=== PATIENT | male | born 1965 | race Caucasian/White ===

== ENCOUNTER → 2017-09-03 | Day surgery (SDC) | payer OTHER ==
[~2017-09-03] MED LIST: ALPRAZolam 0.5 MG TAB PO STA; HYDROcodone/APAP 5-325MG 1 EACH TAB PO PRN; HYDROmorphone 0.5 MG/0.5 ML SYRINGE IVP ONE
[2017-09-03 09:38] VITALS: TEMP 98.3
[2017-09-03 10:00] LABS: INR 1.1 (<1.2); Prothrombin Time 10.6 sec (9.0-12.0)
[2017-09-03 10:10] LABS: Mean Platelet Volume 9.9
[2017-09-03 10:26] LABS: Platelet Count 99 k/uL (150-450)
[2017-09-03 11:10] VITALS: RESP 16
[2017-09-03 13:03] VITALS: PULSE 58
[2017-09-03 14:51] VITALS: BP 110/59
--- NOTE | 2017-09-03 14:59 | US ---
EXAMINATION TYPE: US biopsy liver DATE OF EXAM: 09/03/2017 HISTORY: Hepatosplenomegaly PROCEDURE: Maximal barrier technique was utilized. After informed consent, the skin overlying a suit able path to the liver was localized using ultrasound, the skin was prepped and draped. Ultrasound w as utilized with sterile technique. Lidocaine was used for local anesthesia. A skin sam made with a scalpel. Under direct ultrasound guidance, an 18-gauge needle was advanced into the left lobe of th e liver and core biopsy obtained. Hemostasis was achieved. There was no immediate complication and patient remained in stable condition. Specimen submitted in formalin to Pathology. IMPRESSION: STATUS POST ULTRASOUND GUIDED CORE BIOPSY OF THE LEFT LOBE OF THE LIVER, PATHOLOGY JADA Boss. PERFORMED BY THE UNDERSIGNED.
== END ==
LOC: RADPROMAIN 09:10
DX: K75.81 Nonalcoholic steatohepatitis (NASH) (principal); K74.0 Hepatic fibrosis
CPT/HCPCS: 85049; 85610; 88313; 88307; 96374; 36415; 47000; 76942; J1170

== ENCOUNTER → 2017-10-01 | Outpatient (CLI) | payer OTHER ==
--- NOTE | 2017-10-01 10:31 | US ---
EXAMINATION TYPE: US abdomen complete DATE OF EXAM: 10/01/2017 COMPARISON: 06/26/2017 CLINICAL HISTORY: R10.11 Rt Upper Quadrant Pain. Burning sensation in lower right side, patient clarke ed his eating habits 2 months ago, lost 25lbs, unsure if burning and increase in gas in related to di etary changes. H/o fatty liver and gb polyp EXAM MEASUREMENTS: Liver Length: 19.2 cm Gallbladder Wall: 0.3 cm CBD: 0.4 cm Spleen: 17.5 cm Right Kidney: 12.3 x 5.5 x 5.9 cm Left Kidney: 11.3 x 4.6 x 5.4 cm Pancreas: unable to see due to bowel gas Liver: enlarged and difficult to penetrate but no gross mass noted . Hyperechogenicity with poor vis ualization of the portal triads most commonly relates to hepatic steatosis and limits evaluation for underlying hepatic masses. Gallbladder: possible 2 small polyps versus non shadowing stones, rolled pt LLD and they appeared no nmobile, 0.4cm and 0.2cm in size Evidence for sonographic Richey's sign: no CBD: wnl Spleen: enlarged, decreased by 2cm from previous U/S Right Kidney: wnl Left Kidney: wnl Upper IVC: wnl Abd Aorta: bowel gas limits bifurcation views IMPRESSION: 1. Redemonstration of hyperechoic hepatic echotexture most commonly related to hepatic steatosis. Thi s appears mild in degree. 2. 4 mm and 2 mm nonmobile probable gallbladder polyps versus nonshadowing stones (less likely). 3. Splenomegaly, although decreased in size from the prior exam of 06/26/2017.
== END | disposition home or self-care (01) ==
LOC: RADUSWWP 09:21
PROVIDERS: ATTEND Family Medicine
DX: K76.0 Fatty (change of) liver, not elsewhere classified (principal); R16.1 Splenomegaly, not elsewhere classified; R10.11 Right upper quadrant pain
CPT/HCPCS: 76700

== ENCOUNTER → 2018-09-29 | Outpatient (CLI) | payer OTHER | LOC: LABWHC1 16:14 | PROVIDERS: ATTEND Psychiatry & Neurology Pain Medicine | DX: Z01.818 Encounter for other preprocedural examination (principal) | CPT/HCPCS: 36415; 93005 ==

== ENCOUNTER → 2019-10-25 | Outpatient (CLI) | payer OTHER ==
--- NOTE | 2019-10-25 09:48 | US ---
EXAMINATION TYPE: US abdomen complete DATE OF EXAM: 10/25/2019 COMPARISON: 10/05/2017 CLINICAL HISTORY: R10.9 ABD PAIN. abn WBC, known enlarged liver, tender in LUQ EXAM MEASUREMENTS: Liver Length: 18.2 cm Gallbladder Wall: 0.2 cm CBD: 0.5 cm Spleen: 17.5 cm Right Kidney: 11.2 x 5.7 x 5.2 cm Left Kidney: 12.4 x 5.5 x 5.5 cm *large habitus and bowel gas Pancreas: not seen Liver: Coarsened echotexture. Suboptimal visualization of the portal triads. This limits evaluation for hepatic masses. No focal hepatic mass is seen. Gallbladder: wnl Evidence for sonographic Richey's sign: no CBD: wnl Spleen: enlarged, same size as 2018 exam Right Kidney: wnl Left Kidney: wnl Upper IVC: wnl Abd Aorta: not seen The intrahepatic portion of the IVC and proximal abdominal aorta are within normal limits. There is no evidence of cholelithiasis. Common bile duct is unremarkable. The visualized portions of the mckeon creas are homogenous. The spleen is enlarged. Kidneys are symmetric and free of hydronephrosis. No renal lesions are seen. IMPRESSION: 1. Coarsened hepatic echotexture as seen on the prior. Again this most commonly relates to hepatic st eatosis although other hepatocellular diseases are possible. 2. Splenomegaly as seen on the prior. 3. The previously seen 4 into millimeter probable gallbladder polyps are not redemonstrated on today' s examination. These could have related to tumefactive gallbladder sludge or may simply be obscured o n today's exam.
== END | disposition home or self-care (01) ==
LOC: RADUSWWP 09:02
PROVIDERS: ATTEND Family Medicine
DX: K76.89 Other specified diseases of liver (principal); R16.1 Splenomegaly, not elsewhere classified; R10.9 Unspecified abdominal pain
CPT/HCPCS: 76700

== ENCOUNTER → 2021-04-10 | Outpatient (CLI) | payer OTHER ==
--- NOTE | 2021-04-10 08:59 | US ---
EXAMINATION TYPE: US abdomen complete DATE OF EXAM: 04/10/2021 COMPARISON: CT abdomen 2010. Most recent ultrasound October 25, 2019 CLINICAL HISTORY: R16.1 Splenomegaly. hx splenomegaly EXAM MEASUREMENTS: Liver Length: 22.0 cm Gallbladder Wall: 0.1 cm CBD: 0.3 cm Spleen: 20.0 cm Right Kidney: 12.3 x 5.6 x 5.3 cm Left Kidney: 12.4 x 5.4 x 5.6 cm Pancreas: Obscured by bowel gas Liver: Increased attenuation, decreased visualization of vessels suggestive of fatty infiltrate. Ap pears coarse and enlarged in size. Echogenic in appearance. Gallbladder: Echogenic lesion adjacent to wall, nonvascular - 3.9 mm. Possible tiny polyp. No shadow ing mobile stones. Evidence for sonographic Richey's sign: neg CBD: wnl Spleen: Enlarged in size Right Kidney: No hydronephrosis or masses seen Left Kidney: No hydronephrosis or masses seen Upper IVC: Suboptimal visualization Abd Aorta: Mid and distal portion obscured by overlying bowel gas. Limited visualization of proximal . The visualized liver is redemonstrated heterogeneously hyperechoic. Evaluation for focal masses subop timal due to the heterogeneity. No surrounding ascites. The intrahepatic portion of the IVC and visua lized abdominal aorta are within normal limits. There is no evidence of shadowing mobile cholelithia sis. Common bile duct is unremarkable. The visualized portions of the pancreas are homogenous. The spleen is enlarged at 20.0 cm current study on long axis measured slightly larger than than prior ul trasounds. Kidneys are symmetric and free of hydronephrosis. No renal lesions are seen. IMPRESSION: Persistent and perhaps slightly more prominent splenomegaly. No new ascites. Diffuse fatt y infiltration of liver redemonstrated.
[2021-04-10 09:26] LABS: Basophils % (A) 1 %; Eosinophils # (A) 0.1 k/uL (0-0.7); Eosinophils % (A) 2 %; HGB 13.3 gm/dL (13.0-17.5); Lymphocytes # (A) 1.4 k/uL (1.0-4.8); Lymphocytes % (A) 49 %; MCH 30.4 pg (25.0-35.0); MCHC 34.2 g/dL (31.0-37.0); MCV 88.7 fL (80.0-100.0); Mean Platelet Volume 10.1; Monocytes # (A) 0.2 k/uL (0-1.0); Monocytes % (A) 6 %; Neutrophils # (A) 1.2 k/uL (1.3-7.7); Neutrophils % (A) 40 %; RBC 4.39 m/uL (4.30-5.90); WBC 2.9 k/uL (3.8-10.6)
[2021-04-10 09:45] LABS: ALT 33 U/L (4-49); AST 54 U/L (17-59); African American GFR (CKD) >90 (>60 ml/min/1.73 sqM); Albumin 4.5 g/dL (3.5-5.0); Alkaline Phosphatase 52 U/L (38-126); Amylase 48 U/L (30-110); Anion Gap 10 mmol/L; Blood Urea Nitrogen 10 mg/dL (9-20); Calcium 9.3 mg/dL (8.4-10.2); Carbon Dioxide 25 mmol/L (22-30); Chloride 104 mmol/L (98-107); Glucose 128 mg/dL (74-99); Lipase 368 U/L (23-300); Non-African American GFR(CKD) >90 (>60 ml/min/1.73 sqM); Potassium 4.2 mmol/L (3.5-5.1); Sodium 139 mmol/L (137-145); Total Bilirubin 0.3 mg/dL (0.2-1.3)
[2021-04-10 10:01] LABS: T4, Free (Free Thyroxine) 0.81 ng/dL (0.78-2.19)
[2021-04-10 11:42] LABS: Platelet Count 91 k/uL (150-450)
[2021-04-10 16:18] LABS: Chol/HDL Ratio 4.32; Cholesterol 121 mg/dL (0-200); LDL Cholesterol,Calculated 45.2 mg/dL (0.0-131.0)
== END | disposition home or self-care (01) ==
LOC: RADUSWWP 07:50
PROVIDERS: ATTEND Family Medicine
DX: K76.0 Fatty (change of) liver, not elsewhere classified (principal)
CPT/HCPCS: 84439; 80061; 80053; 82150; 83690; 84443; 85025; 82306; 76700; G0103

== ENCOUNTER → 2021-06-20 | Outpatient (CLI) | payer OTHER | END | disposition home or self-care (01) | LOC: LABWHC1 09:20 | PROVIDERS: ATTEND Psychiatry & Neurology Neurology | DX: Z01.818 Encounter for other preprocedural examination (principal); I49.9 Cardiac arrhythmia, unspecified | CPT/HCPCS: 93005 ==

== ENCOUNTER → 2022-01-23 | Outpatient (CLI) | payer OTHER ==
[2022-01-23 22:55] LABS: INR 0.99 (0.90-1.11); Prothrombin Time 10.9 sec (9.9-11.9)
[2022-01-23 22:58] LABS: ALT 39 U/L (10-49); AST 53 U/L (14-35); African American GFR (CKD) 93.5 (60.0-200.0); Albumin 4.9 g/dL (3.8-4.9); Alkaline Phosphatase 59 U/L (41-126); BUN/Creat Ratio 13.04 Ratio (12.00-20.00); Bilirubin, Conjugated <0.20 mg/dL (0.20-0.40); Blood Urea Nitrogen 13.3 mg/dL (9.0-27.0); Calcium 9.8 mg/dL (8.7-10.3); Carbon Dioxide 20.8 mmol/L (20.0-27.5); Chloride 102 mmol/L (96-109); Globulin 2.4 g/dL (1.6-3.3); Glucose 108 mg/dL (70-110); Non-African American GFR(CKD) 80.6 (60.0-200.0); Potassium 3.9 mmol/L (3.5-5.5); Sodium 138 mmol/L (135-145); Total Protein 7.3 g/dL (6.2-8.2)
[2022-01-23 23:06] LABS: HCT 40.3 % (39.6-50.0); HGB 13.2 g/dL (13.0-17.0); MCHC 32.8 g/dL (32.0-37.0); MCV 88.6 fL (80.0-97.0); Mean Platelet Volume 12.8 fL (9.5-12.2); NRBC Per 100 WBC 0 /100 WBCS (0.0-0.0); Platelet Count 101 X 10*3/uL (140-440); RBC 4.55 X 10*6/uL (4.40-5.60); RDW 13.2 % (11.5-14.5); WBC 3.12 X 10*3/uL (4.50-10.00)
== END | disposition home or self-care (01) ==
LOC: LABWHC1 14:22
DX: K74.60 Unspecified cirrhosis of liver (principal); R53.83 Other fatigue
CPT/HCPCS: 36415; 80053; 82105; 82248; 82306; 82607; 84403; 85027; 85610

== ENCOUNTER → 2025-03-15 | Outpatient (CLI) | payer OTHER ==
--- NOTE | 2025-03-15 09:50 | US ---
EXAMINATION TYPE: US abdomen complete DATE OF EXAM: 03/15/2025 COMPARISON: 04/10/2021 CLINICAL INDICATION: Male, 59 years old with history of R16.0 HEPATOMEGALY NOT ELSEWHERE CLASSIFIED; TECHNIQUE: Grayscale and color Doppler imaging of the abdomen was performed. FINDINGS: EXAM MEASUREMENTS: Liver Length: 21.8 cm, normal less than 15.5 cm Gallbladder Wall: 0.2 cm CBD: 0.6 cm, color Doppler imaging was utilized to isolate the common bile duct for measurement. Spleen: 20.0 cm, normal less than 12.5 cm Right Kidney: 12.4x4.9x6.6 cm Left Kidney: 13.8x5.4x6.1 cm [employer] NOTES: limited views due to pt body habitus & overlying bowel/gas Pancreas: Obscured by bowel gas Liver: Increased attenuation, decreased visualization of vessels suggestive of fatty infiltrate, dif ficult to penetrate, Known Enlarged Gallbladder: ?echogenic foci: 0.4cm, probably polyp Evidence for sonographic Richey's sign: No CBD: wnl Spleen: Enlarged Right Kidney: wnl, No hydronephrosis, calculi or masses seen Left Kidney: wnl as best seen, inferior pole obscured by gas Upper IVC: not well seen due to severe overlying bowel Abd Aorta: prox: not well seen, mid/distally: wnl as best seen IMPRESSION: 1. Mild fatty infiltration of liver. 2. Stable hepatosplenomegaly [facility], Workstation: [facility], 03/15/2025 9:48 AM
== END | disposition home or self-care (01) ==
LOC: RADUSWWP 08:33
PROVIDERS: ATTEND Family Medicine
DX: K76.0 Fatty (change of) liver, not elsewhere classified (principal); R16.2 Hepatomegaly with splenomegaly, not elsewhere classified
CPT/HCPCS: 76700